=== PATIENT | female | born 1955 | race African-American/Black ===

== ENCOUNTER 2018-05-16 10:14 | Outpatient (CLI) | payer BC, OTHER ==
--- NOTE | 2018-05-16 11:44 | ULT ---
ULTRASOUND ABDOMEN COMPLETE: HISTORY: A 62-year-old female with: MARSHALL (nonalcoholic steatohepatitis), K75.81. Liver lesion, left lobe, K76.9 COMPARISON: Abdominal ultrasound of 12/06/2016 from [facility]. FINDINGS: Liver: Diffusely mildly hyperechoic, suggestive of fatty liver. Small, oval, 1.4 x 1 x 1.6 cm, rela tively hypoechoic, well circumscribed lesion in the left corner of the left lobe of the liver, either hepatic segment 2 or 3, is again noted. Allowing for differences in cursor placement, this has not changed since 12/06/2016. Gallbladder: Normal wall thickness. No gallstones or sludge. Common duct: 4 mm. Spleen: No splenomegaly. Pancreas: Completely obscured by shadowing from bowel gas. Kidneys: No hydronephrosis. There is a small, round, 1.3 cm cyst in the posterior parenchyma of the left renal upper pole, which has apparently grown since the previous, when it was measured as 0.7 cm . Another lesion, measured as 1.3 cm on that prior ultrasound, is not visualized on the current ultr asound or on the CT of 12/25/2016, which was probably artifact. Abdominal aorta: No aneurysm proximally. Mid and distal abdominal aorta completely obscured by shad owing from bowel gas. Inferior vena cava: unremarkable. IMPRESSION: 1. Hepatic steatosis. 2. Small hypoechoic, apparently solid lesion in the left lobe of the liver, unchanged since 12/26/19 17. 3. Interval growth of small left renal cyst. ALEXANDER Jacobs POS: PRABHU
== END 2018-05-16 10:15 | disposition home or self-care (01) ==
LOC: SCSULT 10:14
PROVIDERS: ATTEND Internal Medicine
DX: K75.81 Nonalcoholic steatohepatitis (NASH) (principal); K76.9 Liver disease, unspecified; K76.0 Fatty (change of) liver, not elsewhere classified; N28.1 Cyst of kidney, acquired
CPT/HCPCS: 76700

== ENCOUNTER 2019-07-14 07:28 | Outpatient (CLI) | payer BC, MEDICARE, OTHER ==
--- NOTE | 2019-07-14 08:26 | ULT ---
ULTRASOUND ABDOMEN COMPLETE: DATE: 07/14/2019 HISTORY: 64-year-old female follow-up liver lesion. FINDINGS: Liver:Round, well-circumscribed hypoechoic lesion at the far left corner of the left lobe of the live r currently measures approximately 1.5 x 1.3 x 1.2 cm, not significantly changed compared to 05/16/2018 and 12/06/2016. The rest of hepatic parenchymal echogenicity is normal. Gallbladder:No gallstones, sludge, mural thickening, or pericholecystic fluid. Common duct:4 mm Spleen:No splenomegaly Pancreas:Obscured by shadowing from bowel gas. Kidneys:No hydronephrosis. 1.5 cm left renal cyst. Abdominal aorta:Obscured by shadowing from bowel gas. Inferior vena cava:Unremarkable where visualized. IMPRESSION: 1.5 cm focal lesion in left lobe of liver, stable since 2017.
--- NOTE | 2019-07-14 09:40 | MMO ---
Bilateral MAMMO Bilat Screen [facility]. CLINICAL HISTORY: Patient is 64 years old and is seen for screening. The patient has the following family history of breast cancer: sister, at age 45 and sister, at age 42. The patient has no personal history of cancer. VIEWS: The views performed were: bilateral craniocaudal with tomosynthesis and bilateral mediolateral oblique with tomosynthesis. FILMS COMPARED: The present examination has been compared to prior imaging studies performed at [facility] on 05/18/2013, 07/30/2015, 11/08/2016 and 05/20/2018. This study has been interpreted with the assistance of computer-aided detection. MAMMOGRAM FINDINGS: There are scattered fibroglandular densities. Finding 1: There are stable benign appearing calcifications seen in the right breast. Finding 2: There is a stable focal asymmetry seen in the left breast. There are no suspicious masses, suspicious calcifications, or new areas of architectural distortion. IMPRESSION: THERE IS NO MAMMOGRAPHIC EVIDENCE OF MALIGNANCY. A ROUTINE FOLLOW-UP MAMMOGRAM IN 1 YEAR IS RECOMMENDED. THE RESULTS OF THIS EXAM WERE SENT TO THE PATIENT. ACR BI-RADS Category 2 - Benign finding MAMMOGRAPHY NOTE: 1. A negative mammogram report should not delay a biopsy if a dominant of clinically suspicious mass is present. 2. Approximately 10% to 15% of breast cancers are not detected by mammography. 3. Adenosis and dense breasts may obscure an underlying neoplasm. Reported by: ANAND ALANIS MD Electonically Signed: [id number]
== END 2019-07-14 07:29 | disposition home or self-care (01) ==
LOC: BICULT 07:28
PROVIDERS: ATTEND Internal Medicine
DX: Z12.31 Encounter for screening mammogram for malignant neoplasm of breast (principal); K75.81 Nonalcoholic steatohepatitis (NASH); K76.9 Liver disease, unspecified; Z80.3 Family history of malignant neoplasm of breast
CPT/HCPCS: 76700; 77063; 77067

== ENCOUNTER 2022-01-02 10:50 | Outpatient (CLI) | payer BC, MEDICARE, OTHER | END 2022-01-02 10:51 | disposition home or self-care (01) | LOC: BICRAD 10:50 | PROVIDERS: ATTEND Internal Medicine Rheumatology | DX: Z12.31 Encounter for screening mammogram for malignant neoplasm of breast (principal); M79.641 Pain in right hand; M79.642 Pain in left hand; Z80.3 Family history of malignant neoplasm of breast; M19.042 Primary osteoarthritis, left hand; M19.041 Primary osteoarthritis, right hand | CPT/HCPCS: 77063; 77067 ==

== ENCOUNTER 2022-02-13 07:56 | Outpatient (CLI) | payer BC, MEDICARE, OTHER | END 2022-02-13 07:57 | disposition home or self-care (01) | LOC: BICULT 07:56 | PROVIDERS: ATTEND Physician Assistant | DX: K76.0 Fatty (change of) liver, not elsewhere classified (principal); K76.9 Liver disease, unspecified | CPT/HCPCS: 76705 ==

== ENCOUNTER 2023-06-18 09:47 | Outpatient (CLI) | payer BC, MEDICARE, OTHER | END 2023-06-18 09:48 | disposition home or self-care (01) | LOC: BICULT 09:47 | PROVIDERS: ATTEND Nurse Practitioner Family | DX: Z12.31 Encounter for screening mammogram for malignant neoplasm of breast (principal); K75.81 Nonalcoholic steatohepatitis (NASH); Z80.3 Family history of malignant neoplasm of breast; K76.89 Other specified diseases of liver; R16.0 Hepatomegaly, not elsewhere classified | CPT/HCPCS: 76700; 77063; 77067 ==